=== PATIENT | male | born 1930 ===

== ENCOUNTER → 2016-10-30 | Outpatient (REF) | payer MEDICARE ==
[2016-10-30 11:56] LABS: BASOPHILS % (AUTO) 1 % (0-2); EOSINOPHILS # (AUTO) 0.1 10^3uL; EOSINOPHILS % (AUTO) 3 % (0-4); LYMPHOCYTES # (AUTO) 1.8 X10^3; MEAN CORPUSCULAR VOLUME 91 FL (80-100); MEAN PLATELET VOLUME 9.7 FL (6.0-9.5); MONOCYTES # (AUTO) 0.3 X10^3; MONOCYTES % (AUTO) 7 % (3-11); NEUTROPHILS # (AUTO) 2.2 X10^3; NEUTROPHILS % (AUTO) 49 % (51-67); PLATELET COUNT 164 10^3uL (150-450); WHITE BLOOD COUNT 4.42 10^3uL (4.0-11.0)
[2016-10-30 11:59] LABS: MEAN CORPUSCULAR HEMOGLOBIN 32.6 PG (26.0-34.0); MEAN CORPUSCULAR HGB CONC 35.8 g/dL (31.0-37.0)
[2016-10-30 12:06] LABS: ALBUMIN 4.4 g/dL (3.4-5.0); ANION GAP 15.6 MEQ/L (3-15); MAGNESIUM* 1.8 mg/dL (1.6-2.3)
== END ==
LOC: LAB 10:47
PROVIDERS: ATTEND Family Medicine
DX: N18.3 Chronic kidney disease, stage 3 (moderate) (principal); I10 Essential (primary) hypertension; G62.89 Other specified polyneuropathies; E78.2 Mixed hyperlipidemia
CPT/HCPCS: 80069; 82306; 83735; 83970; 84550; 85025